=== PATIENT | female | born 1940 | race Two or more races ===

== ENCOUNTER 2024-08-20 13:22 | Emergency (ER) | payer MEDICAID, SELFPAY ==
[2024-08-20 13:24] VITALS: BP 130/74; PULSE 81; RESP 18; TEMP 36.7; O2SAT 95
--- NOTE | 2024-08-20 13:40 | EDNOTE_ITS ---
ED General RME/HPI General Chief complaint: Weakness Stated complaint: WEAKNESS Time Seen by Provider: 08/20/24 13:26 Arrival date/time: 08/20/24 13:22 Limitations: no limitations RME / HPI RME / HPI narrative: DR. ZEPEDA MAIN ED EVALUATION: 84 year old female presents to the Emergency Department [facility] with complaints of generalized weakness and getting intermittent chest pains. [place] Patient states she was not in the heat today, that is was fresh. She states they left with buddhist friends in a bus. Patient also reported a dry mouth. No injuries or other symptoms reported at this time. Patient reports a similar episode and her doctor told her she had low sodium. Related Data Previous Rx's ?Medication ?Instructions ?Recorded amoxicillin 875 mg-potassium 1 tab PO BID #14 tabs clavulanate 125 mg tablet Allergies Allergy/AdvReac Type Severity Reaction Status Date / Time No Known Allergies Allergy Verified 08/20/24 14:03 Review of Systems Review of Systems Systems Reviewed: All systems reviewed, normal except as documented Past Medical History Social History SMOKING STATUS: Never smoker SUBSTANCE USE: does not use ALCOHOL: Never ED Exam General Limitations: Present no limitations General appearance: Present alert and in no apparent distress Head Head exam: Present atraumatic, normocephalic and normal inspection Eye Eye exam: Present normal appearance, PERRL and EOMI ENT ENT exam: Present normal exam, normal oropharynx and mucous membranes moist Neck Neck exam: Present normal inspection, full ROM and trachea midline Chest Chest inspection: Present normal inspection and symmetric chest wall rise Respiratory Respiratory exam: Present normal lung sounds bilaterally Cardiovascular Cardiovascular exam: Present regular rate, normal rhythm, normal heart sounds and systolic murmur (2/6 systolic murmur) Abdominal Exam Abdominal exam: Present soft and normal bowel sounds Extremities Exam Extremities exam: Present normal inspection and full ROM Back Exam Back exam: Present normal inspection and full ROM Neurological Exam Neurological exam: Present alert, oriented X3 and CN II-XII intact Psychiatric Psychiatric exam: Present normal affect and normal mood Skin Skin exam: Present warm, dry, intact and normal color Course Quality Measures none Orders Category Date Time Status Service Coordinator STAT Care 08/20/24 13:41 Active Continuous Pulse Oximetry ONCE Care 08/20/24 13:41 Completed EKG (ED ONLY) *Do not use* NOW Care 08/20/24 13:41 Completed Insert IV STAT Care 08/20/24 13:41 Active EKG (ED Only) Stat Exams 08/20/24 13:41 Draft XR chest 1V portable Stat Exams 08/20/24 13:41 Completed B-Type Natriuretic Peptide Stat Lab 08/20/24 15:38 Received CBC Stat Lab 08/20/24 14:25 Completed Comprehensive Metabolic Panel Stat Lab 08/20/24 15:28 Completed Troponin I Stat Lab 08/20/24 15:28 Completed Sodium Chloride 0.9% 500 ml [Ns] 500 ml Med 08/20/24 13:40 Discontinued IV 999 mls/hr Vital Signs Vital signs: Vital Signs Temperature 98.1 F 08/20/24 13:24 Pulse Rate 81 08/20/24 13:24 Respiratory Rate 18 08/20/24 13:24 Blood Pressure 130/74 08/20/24 13:24 Pulse Oximetry (%) 95 08/20/24 13:24 Oxygen Delivery Method Room Air 08/20/24 13:24 Discharge Plan Plan Patient Disposition: HOME (Self Care) Patient condition on transfer: Stable Prescriptions/Referrals Prescriptions/Med Rec: New amoxicillin-pot clavulanate 875-125 mg tablet 1 tab PO BID Qty: 14 0RF Problem List Clinical Impression: Altitude sickness, Pneumonia Patient/Caregiver Discharge Instructions Discharge Activity: activity as tolerated Education Materials: Treating Pneumonia, ED Altitude Sickness Print Language: Sudanese Stand Alone Forms: Tami Award Info., Patient Portal Info Letter MDM Narrative MDM hospital course: Patient's symptoms seem to be secondary to altitude sickness, as she was at a local high altitude recreational facility. She does not have any cough or fever and I doubt the findings on the x-ray is pneumonia, however I will go ahead and issuing a prescription for Augmentin to her and further decision-making about this will be deferred to her primary care provider. Labs and EKG are stable. Vitals are stable. Patient with to be discharged home with return precautions. Clinical Information Provided by patient and EMS Medical Records Reviewed EMS Meds/Rx Considered, not Ordered None Labs/Rad/Tests considered, not Ordered None Chronic Illness/Social Conditions Add or document further as needed: Low sodium problems in the past. EKG EKG Interpretation narrative: My interpretation: EKG performed at 1409 hours, sinus rhythm, rate 81, occasional PVCs Imaging Radiology reports / interpretation(s): Procedure(s): XR chest 1V portable Accession Number(s): [id number] cc: Christiano Zepeda MD; Shiraz Kraus MD~ Examination: AP chest single view Technique one AP portable upright chest single view Date and time: August 20, 2024 1437 hours INDICATIONS: Acute chest pain today. FINDINGS: Opacity right base consistent with pneumonia Mild prominence of ventricle Ectatic thoracic aorta Prominent osteopenia IMPRESSION: Right base pneumonia Dictated By: Shiraz Kraus MD Medication Administration(s) Medication Administration History Discontinued Medications Sodium Chloride (Ns) 500 mls @ 999 mls/hr IV .Q31M ONE Stop: 08/20/24 14:10 Last Infusion: 08/20/24 15:00 Dose: Infused Documented By: Admin: 08/20/24 14:15 Dose: 999 mls/hr Documented By: CHARLA Diagnosis Differential diagnosis: Dehydration, electrolyte imbalance, altitude problem Dispositon Disposition: Discharge Home
--- NOTE | 2024-08-20 13:41 | EKG_ITS ---
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
[2024-08-20 13:43] VITALS: PULSE 81; RESP 16; O2SAT 95
--- NOTE | 2024-08-20 14:08 | PC.NURSE ---
PATIENT STATES HER ONLY MEDICAL HISTORY IS ARTHRITIS AND GASTRITIS HOWEVER SHE HAS METOPROLOL AND LASIX WITH HER BUT SHE DOESN'T KNOW WHY SHE TAKES THEM.
[2024-08-20 14:11] VITALS: PULSE 80; BMI 36.6
[2024-08-20] MEDS: SODIUM CHLORIDE 0.9% 500 ML 500 ML 999 ML IV (14:15)
[2024-08-20 14:46] LABS: Basophils % (Auto) 0 % (0-2.5); Eosinophils % (Auto) 0 % (0-10); Hematocrit 32.5 % (36.0-46.0); Hemoglobin 11.4 g/dL (12.0-16.0); Immature Granulocytes % (Auto) 0 % (0-0); Immature Granulocytes Auto 0.02 Thou/mm3 (0.00-0.00); Lymphocytes # (Auto) 1.1 Thou/mm3 (1.0-4.8); Lymphocytes % (Auto) 14 % (10-50); Mean Corpuscular HGB Conc 35.1 g/dl (31.0-37.0); Mean Corpuscular Hemoglobin 31.8 pg (25.0-35.0); Mean Corpuscular Volume 91 fL (80-100); Monocytes # (Auto) 0.7 Thou/mm3 (0.0-0.8); Monocytes % (Auto) 9 % (0-12); Neutrophils % (Auto) 76 % (37-80); Nucleated Red Blood Cell % 0 /100 WBC (0); Platelet Count 200 Thou/mm3 (140-440); RDW Standard Deviation 49.1 fL (36.4-46.3); Red Blood Count 3.58 Miln/mm3 (4.00-5.20); White Blood Count 7.9 Thou/mm3 (3.6-11.0)
[2024-08-20 15:55] VITALS: BP 143/54; PULSE 80; RESP 20; TEMP 36.4; O2SAT 99
[2024-08-20 16:04] LABS: Alanine Aminotransferase 15 U/L (10-49); Albumin, Serum 3.8 gm/dL (3.4-4.8); Albumin/Globulin Ratio 1.5 (1.2-2.2); Alkaline Phosphatase 120 U/L (46-116); Anion Gap 10 (7-16); Aspartate Amino Transferase 22 U/L (0-34); BUN/Creatinine Ratio 40 Ratio (12-20); Bilirubin,Total 0.3 mg/dL (0.3-1.2); Blood Urea Nitrogen 24 mg/dL (9-23); Calcium 8.5 mg/dL (8.3-10.6); Calcium (Corrected) 8.7 mg/dL (8.5-10.1); Carbon Dioxide 24.3 mMol/L (20.0-31.0); Chloride 106 mMol/L (98-107); Creatinine (Component) 0.6 mg/dL (0.6-1.3); Estimated Creatinine Clearance 71.8 mL/min (>60); Globulin 2.5 gm/dL (2.3-3.5); Glucose 110 mg/dL (74-106); Osmolality,Calculated 284 (275-295); Sodium 140 mMol/L (136-145); Total Protein 6.3 gm/dL (5.7-8.2); Troponin I < 0.020 ng/mL (0.0-0.045); eGFR > 60 See Note
[2024-08-20 17:02] LABS: B-Type Natriuretic Peptide 234 pg/mL (0-100)
[2024-08-20 18:57] VITALS: BP 146/65; PULSE 76; RESP 15; TEMP 36.6; O2SAT 97
== END 2024-08-20 19:51 | disposition home or self-care (01) ==
LOC: SERX 17:01
PROVIDERS: Emergency Provider Emergency Medicine
DX: J18.9 Pneumonia, unspecified organism (principal); I49.3 Ventricular premature depolarization; I45.10 Unspecified right bundle-branch block
CPT/HCPCS: 36415; 71045; 80053; 83880; 84484; 85025; 93005; 96360; 99284; J7040

== ENCOUNTER 2024-08-21 18:01 | Emergency (ER) | payer MEDICAID, SELFPAY ==
[2024-08-21 18:13] VITALS: BP 110/68; PULSE 64; RESP 18; TEMP 36.7; O2SAT 96
[2024-08-21 18:15] VITALS: PULSE 88; RESP 16; O2SAT 93; BMI 27.3
--- NOTE | 2024-08-21 18:26 | PD.EDCHEST ---
ED Chest Pain RME/HPI General Chief Complaint: Chest Pain Stated Complaint: CHEST PAIN Time Seen by Provider: 08/21/24 18:26 Arrival date/time: 08/21/24 18:01 RME / HPI RME / HPI narrative: This section includes all my notes and documentations, including HPI, PE, and ED course. Bucky Elizondo MD HPI: 84 y/o female with Hx of HTN, Gastritis, and Arthritis BIBA from home presents with intermittent chest pain episodes all day today. She can have other symptoms during the episodes. Including intense fear, pounding and racing heart, sweating, chills, shaking, trouble breathing, stomach pain, nausea, numbness and tingling in the hands and feet and face, confusion, hot flashes, and feeling faint. No other complaints. ROS: All negative except as documented in HPI. Physical Exam: General: Alert and oriented. Appears anxious. Eyes: Conjunctivae and lids clear. EOMI. PERRL. ENT: No nasal congestion. Neck: Supple. No carotid bruit. No JVD. Heart: RRR. Lungs: No respiratory distress. Good air movement. No rhonchi, wheezing, rales. Chest: No tenderness. Abdomen: Soft with mild epigastric tenderness. Normal bowel sounds. No distension. No rebound or guarding. Back: No CVA tenderness. Legs: No clubbing, cyanosis, edema. Skin: Warm and dry. Neuro: Alert and oriented X 3. Cranial Nerves II-XII grossly intact. No peripheral motor deficits. I reviewed EMS notes. I reviewed all diagnostic test results: My interpretation of the EKG is: Sinus rhythm (84 bpm) with right BBB and nonspecific ST-T changes. My review of the gallbladder US report is: NAD. My review of the Chest/Abdomen/Pelvis CT report is: NAD. Blood tests and urine tests unremarkable. Covid/Influenza: Negative. At this point, diagnoses include: Stomach Ulcer and Anxiety. Treatment here included: Xanax. Significant improvement noted. Recommended more outpatient care. Based on my best medical judgment, made decision no further evaluation or treatment indicated at this time. Patient understands and agrees to the discharge instructions customized and printed, see below. Discharge instructions from Dr. Elizondo: 1. After extensive evaluation, there is no life-threatening condition.? Such as heart attack or pneumothorax (collapsed lung). For very mild stomach ulcer, take omeprazole every morning and famotidine every night for 5 days then as needed. 2. Some symptoms were due to underlying stress or anxiety or nerves.? This is fairly common. 3. Take Xanax as needed.? Whether this helps or not will be valuable information to your private doctors. Mainly take it at night to help you sleep. 4. See a private doctor on 08/23/2024 for recheck and further care. Ask to review all test results and official radiology reports, to make sure you receive all necessary follow-ups and monitoring. To make sure there is no serious underlying heart condition, ask to help you get more tests for your heart that cannot be done here in the ER.? Such as Holter Monitor (cardiac monitoring at home from a day to even a month), heart stress test (on treadmill or with medication), echocardiogram (imaging of your heart structures), heart catherization (checking for blockages in your heart arteries), and a referral to see a Groundskeeper Porter. To make sure there is no serious intra-abdominal condition, ask for help with more investigation not available here in the ER. Such as EGD or scoping the stomach, colonoscopy or scoping the colon, and referral to see uniforms sales representative. 5. Seek immediate medical care with worsening or with any concerns.?? Bucky Elizondo MD Related Data Previous Rx's ?Medication ?Instructions ?Recorded amoxicillin 875 mg-potassium 1 tab PO BID #14 tabs 08/20/24 clavulanate 125 mg tablet alprazolam 0.25 mg tablet (Xanax) 0.25 mg PO BID PRN anxiety #10 tabs 08/21/24 famotidine 40 mg tablet 40 mg PO .bedtime #30 tabs 08/21/24 omeprazole 40 mg capsule,delayed 40 mg PO QDAY #30 caps 08/21/24 release Allergies Allergy/AdvReac Type Severity Reaction Status Date / Time No Known Allergies Allergy Verified 08/21/24 18:25 Review of Systems Review of Systems Systems Reviewed: All systems reviewed, normal except as documented Past Medical History Past Medical History CARDIAC: Positive Hypertension GASTROINTESTINAL: Positive Gastrointestinal Disorders (GASTRITIS) MUSCULOSKELETAL: Positive Arthritis Surgical History SURGICAL: Positive Knee Sx ED Exam Narrative Physical exam: Refer to HPI above Course Quality Measures none Orders Category Date Time Status Bedside COVID-19 Antigen Test NOW Care 08/21/24 18:27 Active Bedside Influenza A&B Antigen Test NOW Care 08/21/24 18:27 Completed EKG (ED ONLY) *Do not use* NOW Care 08/21/24 18:15 Completed Saline [Insert IV] NOW Care 08/21/24 18:[address] chest abdomen pelvis wo Stat Exams 08/21/24 18:28 Completed EKG (ED Only) Stat Exams 08/21/24 18:14 Ordered US gall bladder Stat Exams 08/21/24 18:28 Completed Amylase Stat Lab 08/21/24 18:54 Completed BMP [Basic Metabolic Panel] Stat Lab 08/21/24 18:54 Completed BNP [B-Type Natriuretic Peptide] Stat Lab 08/21/24 18:54 Completed Blood Culture (Lab) Stat Lab 08/21/24 18:28 Ordered CBC Stat Lab 08/21/24 18:54 Completed CRP [C-Reactive Protein] Stat Lab 08/21/24 18:54 Completed ESR [Sed Rate (ESR)] Stat Lab 08/21/24 18:54 Completed Free T4 (Free Thyroxine) Stat Lab 08/21/24 18:54 Completed Lactate (Lactic Acid) Stat Lab 08/21/24 18:54 Completed Lipase Stat Lab 08/21/24 18:54 Completed Liver Panel Stat Lab 08/21/24 18:54 Completed Magnesium Stat Lab 08/21/24 18:54 Completed PT [Prothrombin Time with INR] Stat Lab 08/21/24 18:54 Completed PTT [Partial Thromboplastin Time] Stat Lab 08/21/24 18:54 Completed Procalcitonin Stat Lab 08/21/24 18:54 Completed TSH [Thyroid Stimulating Hormone] Stat Lab 08/21/24 18:54 Completed Troponin I Stat Lab 08/21/24 18:54 Completed UA, C/S IF [Urinalysis, C/S if Indicated] Stat Lab 08/21/24 18:44 Completed ALPRazoLAM [Xanax] Med 08/21/24 18:27 Discontinued 0.25 mg PO X1 ONE Vital Signs Vital signs: Vital Signs Temperature 98.1 F 08/21/24 18:13 Pulse Rate 64 08/21/24 18:13 Respiratory Rate 18 08/21/24 18:13 Blood Pressure 110/68 08/21/24 18:13 Pulse Oximetry (%) 96 08/21/24 18:13 Oxygen Delivery Method Room Air 08/21/24 18:13 Chest Pain MDM Narrative MDM Narrative:: Scribe Attestation: I, Capri Marino, am scribing for and in the presence of Dr. Elizondo. Provider Notation: Although this document has been carefully reviewed, there may still be some phonetic and other typographical errors.? These errors are purely grammatical due to imperfections in the software program and should not be construed in any way to? compromise the substance of the patient's medical care during this visit. 84 y/o female with Hx of HTN, Gastritis, and Arthritis BIBA from home presents with intermittent chest pain that radiates down to the epigastric region x approximately 12 hours. Pain is a 7/10, also reports headache with blurred vision. Denies fever. No other complaints. Patient data External records reviewed:: [facility] previous records (Reviewed prior ED records from 08/20/24. Patient was seen yesterday for Altitude sickness.) and EMS form Clinical information provided by:: patient and EMS Social determinants that could affect healthcare access:: none Patient has the following chronic illnesses:: Hypertension, Gastritis, Arthritis How is presenting disease/condition affected by chronic disease/condition?: exacerbated by Evaluation data The following diagnostics were reviewed and interpreted by me:: lab results, radiology exam(s) and EKG tracing(s) (My interpretation of the EKG is: Sinus rhythm (84 bpm) with right BBB and nonspecific ST-T changes. Bucky Elizondo MD) Lab and/or radiology exams considered but not ordered:: None Interpretation Summary: I reviewed all diagnostic test results: My interpretation of the EKG is: Sinus rhythm (84 bpm) with right BBB and nonspecific ST-T changes. My review of the gallbladder US report is: NAD. My review of the Chest/Abdomen/Pelvis CT report is: NAD. Blood tests and urine tests unremarkable. Covid/Influenza: Negative. Medications / Prescriptions Medications or Prescriptions considered but not ordered:: None Medication administrations:: Medication Administration History Discontinued Medications Alprazolam (Alprazolam 0.25 Mg Tablet) 0.25 mg PO X1 ONE Stop: 08/21/24 18:28 Last Admin: 08/21/24 19:20 Dose: 0.25 mg Documented By: SOILA Xanax Consultations Consultation(s) initiated? (list below): No Diagnosis Chest Pain Differential Diagnosis: pneumothorax, stable angina, unstable angina pectoris, atypical chest pain, st elevation myocardial infarction, costochondritis, chest pain, biliary colic and other (GERD, Gastritis, Peptic Ulcer, Anxiety) Most likely diagnosis given after review of the tests above:: Stomach Ulcer and Anxiety Admission Indicated Admission indicated?: not indicated Explain why admission is indicated or not indicated:: With no severe condition, there was no indication for admission. Admission Request Was there a request for admission?: No Disposition Plan Disposition Plan: Discharge Discharge Attestation Discharge Attestation: The patient and all family members were given an opportunity to ask questions and understood the discharge instructions. Discharge instructions specifically effects, indications for sooner follow up or return to the emergency department, and the expected course of current diagnosis. Patient condition: Stable Discharge Plan Plan Patient Disposition: HOME (Self Care) Prescriptions/Referrals Prescriptions/Med Rec: New alprazolam [Xanax] 0.25 mg tablet 0.25 mg PO BID PRN (Reason: anxiety) Qty: 10 0RF famotidine 40 mg tablet 40 mg PO .bedtime Qty: 30 0RF omeprazole 40 mg capsule,delayed release(DR/EC) 40 mg PO QDAY Qty: 30 0RF No Action amoxicillin-pot clavulanate 875-125 mg tablet 1 tab PO BID Qty: 14 0RF Referrals: No Primary/Family,Physician [Primary Care Provider] - In 1 week Problem List Clinical Impression: Stomach ulcer Patient/Caregiver Discharge Instructions Discharge Activity: activity as tolerated Education Materials: ED Anxiety Reaction, ED Gastritis (Adult) Additional Instructions: Discharge instructions from Dr. Elizondo: 1. After extensive evaluation, there is no life-threatening condition.? Such as heart attack or pneumothorax (collapsed lung). For very mild stomach ulcer, take omeprazole every morning and famotidine every night for 5 days then as needed. 2. Some symptoms were due to underlying stress or anxiety or nerves.? This is fairly common. 3. Take Xanax as needed.? Whether this helps or not will be valuable information to your private doctors. Mainly take it at night to help you sleep. 4. See a private doctor on 08/23/2024 for recheck and further care. Ask to review all test results and official radiology reports, to make sure you receive all necessary follow-ups and monitoring. To make sure there is no serious underlying heart condition, ask to help you get more tests for your heart that cannot be done here in the ER.? Such as Holter Monitor (cardiac monitoring at home from a day to even a month), heart stress test (on treadmill or with medication), echocardiogram (imaging of your heart structures), heart catherization (checking for blockages in your heart arteries), and a referral to see a Groundskeeper Porter. To make sure there is no serious intra-abdominal condition, ask for help with more investigation not available here in the ER. Such as EGD or scoping the stomach, colonoscopy or scoping the colon, and referral to see uniforms sales representative. 5. Seek immediate medical care with worsening or with any concerns.?? Instrucciones de cassie del Dr. Elizondo: 1. Tras kirsten evaluaci?n exhaustiva, no se observa ninguna afecci?n potencialmente mortal, yajaira un infarto o un neumot?rax (colapso pulmonar). En stephanie de ?lcera estomacal leve, tome omeprazol todas las ma?anas y famotidina todas las noches moisés 5 d?as y, posteriormente, seg?n sea necesario. 2. Algunos s?ntomas se debieron a estr?s, ansiedad o nerviosismo subyacentes. [place] es bastante com?n. 3. [place] Xanax seg?n sea necesario. Brown m?dico le informar? si esto le ayuda o no. T?swan principalmente por la noche para ayudarle a dormir. 4. Consulte con un m?dico el 23/08/2024 para kirsten nueva revisi?n y atenci?n adicional. Solicite la revisi?n de todos los resultados de las pruebas y los informes radiol?gicos oficiales para asegurarse de recibir todos los seguimientos y la monitorizaci?n necesarios. Para asegurarse de que no haya kirsten afecci?n card?macy subyacente grave, solicite ayuda para realizar m?s pruebas card?acas que no se pueden realizar en urgencias. Yajaira un Holter (monitoreo card?aco en casa desde un d?a hasta un mes), kirsten prueba de esfuerzo card?aco (en cinta o con medicaci?n), un ecocardiograma (im?genes de las estructuras card?acas), un cateterismo card?aco (para detectar obstrucciones en las arterias card?acas) y kirsten derivaci?n a un cardi?logo. Para asegurarse de que no haya kirsten afecci?n intraabdominal grave, solicite ayuda con otras pruebas que no est?n disponibles en urgencias, yajaira kirsten endoscopia estomacal (EGD) o kirsten endoscopia g?strica, kirsten colonoscopia o kirsten endoscopia de colon, y kirsten derivaci?n a un gastroenter?logo. 5. [place] atenci?n m?dica inmediata si presenta empeoramiento o si tiene alguna inquietud. Print Language: Hungarian Stand Alone Forms: Tami Award Info., Patient Portal Info Letter
--- NOTE | 2024-08-21 18:28 | XR_ITS ---
Examination: CT chest, without intravenous contrast. CT abdomen, without intravenous contrast. CT pelvis, without intravenous contrast. 2-D sagittal and coronal reconstructions. 3-D reconstructions. Date and time of exam:August 21, 2024 1843 hours INDICATIONS: Chest and abdominal pain today CTDI vol (mgy) 7.6 DLP (MGycm)455 Technique: Multiple CT images, 3.0 mm slice thickness, obtained chest, abdomen, pelvis, with the high-resolution 64 slice scanner.. Sagittal and coronal 2-D reconstructions are obtained. 3-D reconstructions Low dose protocols were performed. One or more of the following dose reduction techniques were used; automated exposure control, adjustment of the mA and/or KV according to patient size, use of iterative reconstruction technique. Findings: No thoracic aortic aneurysm dilatation Pulmonary artery segments are not enlarged. Mild enlargement cardiac contour 5 mm pulmonary nodule left upper lobe image 55 No lobar pneumonia or pulmonary edema Pneumobilia No intrahepatic biliary tract dilatation Gallbladder not visualized No extrahepatic biliary duct dilatation No pancreatic or adrenal mass Moderate bilateral renal parenchymal scar formation, no hydronephrosis Abdominal aortic calcification no aneurysmal dilatation 8 mm fat-containing supraumbilical hernia defect No pericecal inflammatory change No bowel obstruction Colonic diverticulosis, no diverticulitis Atrophic uterus Contracted urinary bladder, urinary bladder wall thickening up to 8 mm Right inguinal hernia containing small bowel but no incarcerated bowel Fat-containing left inguinal hernia Severe osteopenia with diffuse advanced lumbar degenerative disc disease IMPRESSION: 5 mm pulmonary nodule left upper lobe, with this study is based on recommend 6 month follow-up CT chest without contrast No pneumonia or pulmonary edema Pneumobilia No biliary tract dilatation Moderate bilateral renal parenchymal scar formation Right inguinal hernia containing small bowel but no incarcerated bowel or bowel obstruction Urinary bladder wall thickening up to 8 mm, consider cystitis
--- NOTE | 2024-08-21 18:28 | XR_ITS ---
Examination: Abdomen sonogram, Limited Date and time of exam: August 21, 2024 2109 hours INDICATIONS: Right upper abdominal pain and tenderness today Technique: Real-time espinoza scale transabdominal sonographic images of the upper abdomen obtained. Findings: No mass in the gallbladder fossa Common bile duct 10 mm Pancreatic head 1.9 cm Liver 10.6 cm no liver lesions Normal hepatopedal portal venous flow Patent IVC IMPRESSION: No common bile duct stones noted No focal liver lesion
[2024-08-21 18:56] LABS: Collection Type, Urine Clean Catch
[2024-08-21 19:04] LABS: Lactate (Lactic Acid) 0.9 mMol/L (0.4-2.0)
[2024-08-21 19:05] LABS: Bilirubin,Urine Negative (Negative); Blood,Urine Trace (Negative); Clarity,Urine Clear (Clear/Hazy); Color,Urine Lt-Yellow (Lt Yel-Yel); Culture Indicated,Urine Not Indicated; Glucose, Urine Negative (Negative); Ketones,Urine Negative (Negative); Leukocyte Esterase,Urine Positive (Negative); Nitrite,Urine Negative (Negative); Protein,Urine Negative (Neg - Trace); RBC,Urine 1 /hpf (0-3); Squamous Epithelial Cell,Urine 1 /hpf (0-5); Urobilinogen,Urine Negative mg/dL (0.0-1.0); WBC,Urine 2 /hpf (0-5)
[2024-08-21 19:07] LABS: Basophils # (Auto) 0.1 Thou/mm3 (0.0-0.2); Basophils % (Auto) 1 % (0-2.5); Eosinophils # (Auto) 0.1 Thou/mm3 (0.0-0.5); Eosinophils % (Auto) 1 % (0-10); Hematocrit 30.8 % (36.0-46.0); Hemoglobin 10.9 g/dL (12.0-16.0); Immature Granulocytes % (Auto) 0 % (0-0); Immature Granulocytes Auto 0.03 Thou/mm3 (0.00-0.00); Lymphocytes # (Auto) 1.8 Thou/mm3 (1.0-4.8); Lymphocytes % (Auto) 19 % (10-50); Mean Corpuscular HGB Conc 35.4 g/dl (31.0-37.0); Mean Corpuscular Hemoglobin 31.8 pg (25.0-35.0); Mean Corpuscular Volume 90 fL (80-100); Monocytes # (Auto) 0.8 Thou/mm3 (0.0-0.8); Monocytes % (Auto) 9 % (0-12); Neutrophils # (Auto) 6.7 Thou/mm3 (1.8-7.7); Neutrophils % (Auto) 71 % (37-80); Nucleated Red Blood Cell % 0 /100 WBC (0); Platelet Count 191 Thou/mm3 (140-440); RDW Standard Deviation 47.5 fL (36.4-46.3); Red Blood Count 3.43 Miln/mm3 (4.00-5.20); White Blood Count 9.4 Thou/mm3 (3.6-11.0)
[2024-08-21 19:15] LABS: Sed Rate (ESR) 35 mm/hr (0-30)
[2024-08-21 19:20] LABS: Partial Thromboplastin Time 26.6 Seconds (22.0-36.0); Prothrombin Time 11.1 Seconds (9.0-12.2)
[2024-08-21] MEDS: ALPRazoLAM 0.25 MG TABLET PO (19:20)
[2024-08-21 19:34] LABS: B-Type Natriuretic Peptide 268 pg/mL (0-100)
[2024-08-21 19:42] LABS: Alanine Aminotransferase 14 U/L (10-49); Albumin, Serum 3.8 gm/dL (3.4-4.8); Alkaline Phosphatase 95 U/L (46-116); Amylase 127 U/L (30-118); Anion Gap 9 (7-16); Aspartate Amino Transferase 23 U/L (0-34); BUN/Creatinine Ratio 27 Ratio (12-20); Bilirubin,Direct 0.2 mg/dL (0.0-0.3); Bilirubin,Total 0.6 mg/dL (0.3-1.2); Blood Urea Nitrogen 16 mg/dL (9-23); C-Reactive Protein < 0.5 mg/dL (0.0-0.9); Calcium 8.6 mg/dL (8.3-10.6); Carbon Dioxide 25.4 mMol/L (20.0-31.0); Chloride 101 mMol/L (98-107); Creatinine (Component) 0.6 mg/dL (0.6-1.3); Estimated Creatinine Clearance 61.8 mL/min (>60); Free T4 (Free Thyroxine) 1.07 ng/dL (0.89-1.76); Glucose 108 mg/dL (74-106); Lipase 40 U/L (12-53); Magnesium 1.9 mg/dL (1.6-2.6); Osmolality,Calculated 272 (275-295); Potassium 3.9 mMol/L (3.4-5.1); Procalcitonin 0.04 ng/ml (0.0-0.49); Sodium 135 mMol/L (136-145); Total Protein 6.2 gm/dL (5.7-8.2); Troponin I < 0.020 ng/mL (0.0-0.045); eGFR > 60 See Note
[2024-08-21 22:14] VITALS: BP 112/61; PULSE 74; RESP 22; O2SAT 95
[2024-08-22 02:00] VITALS: BP 134/78; PULSE 70; RESP 30; O2SAT 94
[2024-08-22 04:38] VITALS: BP 104/54; PULSE 78; RESP 16; TEMP 36.6; O2SAT 96
[2024-08-22 05:31] VITALS: BP 112/74; PULSE 89; RESP 16; TEMP 36.5; O2SAT 96
--- NOTE | 2024-08-22 07:18 | PC.NURSE ---
Patient in room on [facility] with no signs of acute distress noted. Patient aware she is cleared for discharge home. Per night RN attempted to call patient family all night with no answer. This morning Night RN was able to get in contact with patient family member Monica. 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
--- NOTE | 2024-08-22 08:39 | PC.CC ---
Addendum entered by Valentina Cristina 08/22/24 10:07: ASW received a return text message from pts friend Peg Ruiz [phone] who provided her home address and stated someone will be at the address to receive the pt. RN is aware. ASW arranged an [employer] transporation for the pt and RN is aware. [employer] will arrive at 1024. Original Note: ASW met with pt as she is discharged but needs transportation to her friends home. Pt does not know her friends address. Pt states her friend lives by [facility] but on the other side of the [place]. Pt reports she is from [place] and came to [place] for a retreat. Pt reports she can get a ride back to [place] but needs to get her items from her friends home. Pts friend is named Peg Ruiz [phone]. ASW attempted to contact Peg several time and no answer. ASW sent a text message to Peg and no response. ASW attempted to contact pts daughter as listed on the face sheet, but the phone call does not go through.
[2024-08-22 10:00] VITALS: BP 110/72; PULSE 77; RESP 18; TEMP 36.4; O2SAT 97
== END 2024-08-22 10:17 | disposition home or self-care (01) ==
PROVIDERS: Emergency Provider Emergency Medicine
DX: K25.9 Gastric ulcer, unspecified as acute or chronic, without hemorrhage or perforation (principal); I10 Essential (primary) hypertension; R91.1 Solitary pulmonary nodule; I70.0 Atherosclerosis of aorta; K40.90 Unilateral inguinal hernia, without obstruction or gangrene, not specified as recurrent; M51.369 Other intervertebral disc degeneration, lumbar region without mention of lumbar back pain or lower extremity pain; M85.88 Other specified disorders of bone density and structure, other site; N32.89 Other specified disorders of bladder; N85.8 Other specified noninflammatory disorders of uterus; K57.30 Diverticulosis of large intestine without perforation or abscess without bleeding
CPT/HCPCS: 36415; 71250; 74176; 76705; 80048; 80076; 81001; 82150; 83605; 83690; 83735; 83880; 84145; 84439; 84443; 84484; 85025; 85610; 85652; 85730; 86140; 87400; 87811; 93005; 99284; A9270